=== PATIENT | male | born 1965 | race American Indian/Alaskan Native ===

== ENCOUNTER 2019-06-22 18:30 | Emergency (ER) | payer SELFPAY ==
[2019-06-22 19:27] VITALS: BP 127/63
--- NOTE | 2019-06-22 20:04 | XRay Report ---
LEFT KNEE 4 VIEWS INDICATION: severe pain with decreased mobility,non-traumatic. COMPARISON: None available. FINDINGS: Fracture: None. Subluxation: None. Joint Spaces: Severe tricompartmental degenerative changes.. Joint Effusion: None. Soft Tissues: Normal. Additional Findings: None. IMPRESSION: 1. No acute radiographic abnormality. Degenerative changes, as above. Signer Name: Gal Andrade MD Signed: 06/22/2019 8:00 PM Workstation Name: [id number]
--- NOTE | 2019-06-22 21:32 | Emergency Department Report ---
HPI - General Chief Complaint: Extremity Problem,Nontraumatic Time Seen by Provider: 06/22/19 21:21 - HPI HPI: Room 29 The pt is a 54 y/o M p/w a cc of Left knee pain. The pt states he's had pain to the medial aspect of his left knee x 3 months. Pt denies preceeding trauma. The pt states the pain has worsened over the last 2-3 days. Pt denies fever or swelling. Pt gives his pain a score of 8/10 ED Past Medical Hx - Past Medical History Previous Medical History?: No - Surgical History Past Surgical History?: No - Family History Family history: no significant - Social History Smoking Status: Current Every Day Smoker (08/15 ppd) Substance Use Type: Marijuana - Medications Home Medications: Home Medications Medication Instructions Recorded Confirmed Last Taken Type HYDROcodone/APAP 5-325 [[place]mann 1 - 2 each PO Q6HR PRN #14 tablet 06/22/19 Unknown Rx 5/325] Ibuprofen [Motrin 800 MG tab] 800 mg PO Q8HR PRN #20 tablet 06/22/19 Unknown Rx ED Review of Systems ROS: Stated complaint: L KNEE PAIN Other details as noted in HPI Constitutional: denies: fever Eyes: denies: eye pain ENT: denies: throat pain Respiratory: no symptoms reported Cardiovascular: denies: chest pain Endocrine: no symptoms reported Gastrointestinal: denies: abdominal pain Genitourinary: denies: dysuria Musculoskeletal: arthralgia Neurological: denies: headache Physical Exam - Physical Exam Vital Signs: Vital Signs 06/22/19 18:41 Temperature 97.7 F Pulse Rate 88 Respiratory 16 Rate Blood Pressure 127/63 O2 Sat by Pulse 95 Oximetry Physical Exam: GEN: WD WN M sitting in chair in NAD HEENT: NCAT, EOMI NECK:Trachea midline, no stridor Pulm: no resp distress Neuro: GCS 15 SKIN: no diaphoresis MS: No pain with Varus stress, pain to the lateral left knee with Valgus stress. No laxity of the Left knee appreciated. no evidence of acute injury ED Course Vital Signs 06/22/19 18:41 Temperature 97.7 F Pulse Rate 88 Respiratory 16 Rate Blood Pressure 127/63 O2 Sat by Pulse 95 Oximetry ED Medical Decision Making - Radiology Data Radiology results: report reviewed (Left knee xray), image reviewed (Left knee xray) interpreted by me: Left knee xray- no acute fxs [facility] [address] [place] [address] XRay Report Signed Patient: SALVATORE KUMAR MR#: [id number] : 1965 Acct:[id number] Age/Sex: 54 / M ADM Date: 06/22/19 Loc: ED Attending Dr: Ordering Physician: NAT BUSH Date of Service: 06/22/19 Procedure(s): XR knee 3V LT Accession Number(s): [id number] cc: NAT BUSH Fluoro Time In Minutes: LEFT KNEE 4 VIEWS INDICATION: severe pain with decreased mobility,non-traumatic. COMPARISON: None available. FINDINGS: Fracture: None. Subluxation: None. Joint Spaces: Severe tricompartmental degenerative changes.. Joint Effusion: None. Soft Tissues: Normal. Additional Findings: None. IMPRESSION: 1. No acute radiographic abnormality. Degenerative changes, as above. Signer Name: Gal Andrade MD Signed: 06/22/2019 8:00 PM Workstation Name: [id number] Transcribed By: BC Dictated By: Gal Andrade MD Electronically Authenticated By: Gal Andrade MD Signed Date/Time: 06/22/191999 DD/ 58 TD/TT: Critical care attestation.: If time is entered above; I have spent that time in minutes in the direct care of this critically ill patient, excluding procedure time. ED Disposition Clinical Impression: Degenerative joint disease of left knee, Left knee pain Disposition: - TO HOME OR SELFCARE Is pt being admited?: No Does the pt Need Aspirin: No Condition: Stable Instructions: Arthralgia (ED) Prescriptions: Ibuprofen [Motrin 800 MG tab] 800 mg PO Q8HR PRN #20 tablet PRN Reason: Pain, Moderate (4-6) HYDROcodone/APAP 5-325 [[place] 5/325] 1 - 2 each PO Q6HR PRN #14 tablet PRN Reason: Pain Referrals: ELTON RAMIREZ MD [Staff Physician] - 3-5 Days (Dr Ramirez is an Orthopedic Surgeon. Please follow up with him for further evaluation) Time of Disposition: 21:36
== END 2019-06-22 22:06 | disposition home or self-care (01) ==
LOC: ED 18:30
DX: M17.12 Unilateral primary osteoarthritis, left knee (principal); F17.200 Nicotine dependence, unspecified, uncomplicated; F12.10 Cannabis abuse, uncomplicated